=== PATIENT | male | born 1950 | race Caucasian/White ===

== ENCOUNTER 2023-10-05 22:04 | Inpatient (IN) | payer MEDICARE ==
--- NOTE | 2023-10-05 22:25 | ED Physician Documentation ---
History of Present Illness - Stated complaint Stated Complaint: FEVER/ - History obtained from History obtained from: Patient - Additonal information Additional information: 73-year-old man presents 2 days status post cystoscopy with dysuria and increased frequency as well as fever, also with URI symptoms. Denies chest pain but does have some subjective dyspnea. Denies nausea vomiting or diarrhea. PD PAST MEDICAL HISTORY - Allergies Allergies/Adverse Reactions: Allergies Allergy/AdvReac Type Severity Reaction Status Date / Time lisinopril Allergy Rash Verified 10/05/23 22:09 rosuvastatin [From Crestor] Allergy Rash Verified 10/05/23 22:09 PD ED PE NORMAL - Vitals Vital signs reviewed: Yes - General General: Alert and oriented X 3, No acute distress, Well developed/nourished - HEENT HEENT: Atraumatic, PERRL, EOMI - Neck Neck: Supple, no meningeal sign - Cardiac Cardiac: RRR - Respiratory Respiratory: No respiratory distress, Clear bilaterally, Other (Tachypneic) - Abdomen Abdomen: Non tender, Non distended - Back Back: No CVA TTP - Derm Derm: Normal color, Warm and dry - Extremities Extremities: No deformity - Neuro Neuro: No motor deficit, No sensory deficit Results - Vitals Vitals: Vital Signs - 24 hr 10/05/23 10/05/23 10/05/23 22:09 22:56 23:26 Temperature 38.7 C H 38.9 C H Heart Rate 114 H 104 H 103 H Respiratory 22 18 22 Rate Blood Pressure 143/84 H 172/85 H 160/82 H O2 Saturation 97 99 96 10/05/23 10/05/23 23:55 23:57 Temperature 38.4 C H 38.4 C H Heart Rate 101 H Respiratory 22 Rate Blood Pressure 164/72 H O2 Saturation 96 Oxygen O2 Source Room air - EKG (time done) 2245 EKG releavant findings:: EKG personally interpreted by author of this note. Relevant findings are: Rate: Rate (enter#) (103) Rhythm: Sinus tachycardia Emerson: Normal Intervals: Normal LA QRS: Normal Ischemia: Normal ST segments - Labs Labs: Laboratory Tests 10/05/23 10/05/23 10/05/23 22:20 22:20 22:31 WBC 16.9 H RBC 4.96 Hgb 15.0 Hct 45.4 MCV 91.5 MCH 30.2 MCHC 33.0 RDW 12.6 Plt Count 207 MPV 10.0 Neut # (Auto) Not Reportable Lymph # (Auto) Not Reportable [place] # (Auto) Not Reportable Eos # (Auto) Not Reportable Baso # (Auto) Not Reportable Absolute Nucleated RBC Not Reportable Total Counted 100 Band Neuts % (Manual) 0 Abnorm Lymph % (Manual) 0 Nucleated RBC % Not Reportable Neutrophils # (Manual) 13.9 H Lymphocytes # (Manual) 0.8 L Monocytes # (Manual) 2.2 H Eosinophils # (Manual) 0.0 Basophils # (Manual) 0.0 Differential Comment MANUAL DIFFERENTIAL Platelet Estimate NORMAL (130-450,000) Platelet Morphology NORMAL APPEARANCE RBC Morph Micro Appear NORMAL APPEARANCE Sodium Potassium Chloride Carbon Dioxide Anion Gap BUN Creatinine Estimated GFR (MDRD) Glucose Lactic Acid Calcium Total Bilirubin AST ALT Alkaline Phosphatase Total Protein Albumin Globulin Albumin/Globulin Ratio Urine Color YELLOW Urine Clarity CLOUDY Urine pH 7.0 Ur Specific [place] 1.020 Urine Protein 30 H Urine Glucose (UA) NEGATIVE Urine Ketones >=80 H Urine Occult Blood MODERATE H Urine Nitrite POSITIVE H Urine Bilirubin NEGATIVE Urine Urobilinogen 0.2 (NORMAL) Ur Leukocyte Esterase SMALL H Urine RBC TNTC H Urine WBC >25 H Ur Squamous Epith Cells NONE SEEN Urine Bacteria Many H Urine Culture Comments INDICATED Nasal Adenovirus (PCR) NOT DETECTED Nasal B. parapertussis DNA (PCR) NOT DETECTED Nasal Coronavir 229E PCR NOT DETECTED Nasal Coronavir HKU1 PCR NOT DETECTED Nasal Coronavir NL63 PCR NOT DETECTED Nasal Coronavir OC43 PCR NOT DETECTED Nasal Enterovir/Rhinovir PCR DETECTED A Nasal Influenza B PCR NOT DETECTED Nasal Influenza A PCR NOT DETECTED Nasal Parainfluen 1 PCR NOT DETECTED Nasal Parainfluen 2 PCR NOT DETECTED Nasal Parainfluen 3 PCR NOT DETECTED Nasal Parainfluen 4 PCR NOT DETECTED Nasal RSV (PCR) NOT DETECTED Nasal B.pertussis DNA PCR NOT DETECTED Nasal C.pneumoniae (PCR) NOT DETECTED Cornelio Human Metapneumo PCR NOT DETECTED Nasal M.pneumoniae (PCR) NOT DETECTED Nasal SARS-CoV-2 (PCR) NOT DETECTED 10/05/23 10/05/23 22:31 22:31 WBC RBC Hgb Hct MCV MCH MCHC RDW Plt Count MPV Neut # (Auto) Lymph # (Auto) [place] # (Auto) Eos # (Auto) Baso # (Auto) Absolute Nucleated RBC Total Counted Band Neuts % (Manual) Abnorm Lymph % (Manual) Nucleated RBC % Neutrophils # (Manual) Lymphocytes # (Manual) Monocytes # (Manual) Eosinophils # (Manual) Basophils # (Manual) Differential Comment Platelet Estimate Platelet Morphology RBC Morph Micro Appear Sodium 128 L Potassium 4.1 Chloride 98 L Carbon Dioxide 23 Anion Gap 7.0 BUN 16 Creatinine 0.9 Estimated GFR (MDRD) 83 L Glucose 202 H Lactic Acid 1.0 Calcium 9.2 Total Bilirubin 1.5 H AST 22 ALT 22 Alkaline Phosphatase 81 Total Protein 6.4 Albumin 4.0 Globulin 2.4 Albumin/Globulin Ratio 1.7 Urine Color Urine Clarity Urine pH Ur Specific [place] Urine Protein Urine Glucose (UA) Urine Ketones Urine Occult Blood Urine Nitrite Urine Bilirubin Urine Urobilinogen Ur Leukocyte Esterase Urine RBC Urine WBC Ur Squamous Epith Cells Urine Bacteria Urine Culture Comments Nasal Adenovirus (PCR) Nasal B. parapertussis DNA (PCR) Nasal Coronavir 229E PCR Nasal Coronavir HKU1 PCR Nasal Coronavir NL63 PCR Nasal Coronavir OC43 PCR Nasal Enterovir/Rhinovir PCR Nasal Influenza B PCR Nasal Influenza A PCR Nasal Parainfluen 1 PCR Nasal Parainfluen 2 PCR Nasal Parainfluen 3 PCR Nasal Parainfluen 4 PCR Nasal RSV (PCR) Nasal B.pertussis DNA PCR Nasal C.pneumoniae (PCR) Cornelio Human Metapneumo PCR Nasal M.pneumoniae (PCR) Nasal SARS-CoV-2 (PCR) PD Medical Decision Making - ED course ED course: 73-year-old man presents with urinary tract infection and sepsis secondary to this and enterovirus/rhinovirus viral URI. Patient also has hyponatremia with sodium 128. His white blood cell count is 16.9. IV Rocephin provided as well as IV fluids. Plan to admit to observation. Discussed with Dr. Vaughn, [facility]. Departure - Departure Disposition: ED Place in Observation Clinical Impression: UTI (urinary tract infection), Sepsis, Hyponatremia, Weakness Condition: Fair Forms: PCP List
[2023-10-05 22:37] LABS: BASOPHILS % (AUTO) 0.3 %; HCT - HEMATOCRIT 45.4 % (42.0-52.0); LYMPHOCYTES % (AUTO) 6.3 %; MEAN CORPUSCULAR HEMOGLOBIN 30.2 pg (27.0-31.0); MEAN CORPUSCULAR VOLUME 91.5 fL (80.0-94.0); MONOCYTES % (AUTO) 10.4 %; NEUTROPHILS % (AUTO) 82.5 %; PLT - PLATELET COUNT 207 10^3/uL (130-450); RED BLOOD COUNT 4.96 10^6/uL (4.70-6.10); RED CELL DISTRIBUTION WIDTH 12.6 % (12.0-15.0); WHITE BLOOD COUNT 16.9 x10^3/uL (4.8-10.8)
[2023-10-05 22:39] LABS: BILIRUBIN,URINE NEGATIVE (NEGATIVE); GLUCOSE, URINE (UA) NEGATIVE (NEGATIVE); KETONES,URINE (UA) >=80 mg/dL (NEGATIVE); LEUKOCYTE ESTERASE, URINE SMALL (NEGATIVE); NITRITE,URINE POSITIVE (NEGATIVE); OCCULT BLOOD,URINE MODERATE (NEGATIVE); PROTEIN,URINE 30 mg/dL (NEGATIVE); UROBILINOGEN,URINE 0.2 (NORMAL) E.U./dL (NORMAL)
[2023-10-05 22:40] LABS: CLARITY,URINE CLOUDY (CLEAR)
[2023-10-05 22:41] LABS: ABNORMAL LYMPHS % (MANUAL) 0 %; BAND NEUTROPHILS % (MANUAL) 0 %
[2023-10-05 22:49] LABS: BACTERIA,URINE Many /HPF (None Seen); RBC,URINE TNTC /HPF (0-5); SQUAMOUS EPITHELIAL CELL,UR NONE SEEN (<= Few); WBC,URINE >25 /HPF (0-3)
[2023-10-05 22:53] LABS: ALBUMIN/GLOBULIN RATIO 1.7 (1.0-2.2); BILIRUBIN,TOTAL 1.5 mg/dL (0.2-1.0); CALCIUM 9.2 mg/dL (8.5-10.3); CREATININE 0.9 mg/dL (0.6-1.3); POTASSIUM 4.1 mmol/L (3.5-4.5); TOTAL PROTEIN 6.4 g/dL (6.4-8.9)
[2023-10-05 23:00] LABS: LYMPHOCYTES # (MANUAL) 0.8 10^3/uL (1.5-3.5); LYMPHOCYTES % (MANUAL) 5 %; MONOCYTES # (MANUAL) 2.2 10^3/uL (0.0-1.0); NEUTROPHILS # (MANUAL) 13.9 10^3/uL (1.5-6.6); PLATELET ESTIMATE, MANUAL NORMAL (130-450,000) (NORMAL); PLATELET MORPHOLOGY NORMAL APPEARANCE (NORMAL); RBC MORPHOLOGY (MULTIPLE) NORMAL APPEARANCE (NORMAL)
[2023-10-05 23:01] LABS: DIFFERENTIAL COMMENT MANUAL DIFFERENTIAL
[2023-10-05] MEDS: ACETAMINOPHEN 325 MG TABLET PO STA (23:25)
[2023-10-05 23:32] LABS: CORONAVIRUS 229E-RESP PCR NOT DETECTED; CORONAVIRUS HKU1-RESP PCR NOT DETECTED; CORONAVIRUS NL63-RESP PCR NOT DETECTED; CORONAVIRUS OC43-RESP PCR NOT DETECTED
[2023-10-05 23:33] LABS: B. PARAPERTUSSIS- RESP PCR PAN NOT DETECTED; B. PERTUSSIS- RESP PCR PANEL NOT DETECTED; C. PNEUMONIAE- RESP PCR PANEL NOT DETECTED; HUMAN METAPNEUMOVIRUS NOT DETECTED; INFLUENZA A- RESP PCR PANEL NOT DETECTED; INFLUENZA B - RESP PCR PANEL NOT DETECTED; M. PNEUMONIAE- RESP PCR PANEL NOT DETECTED; PARAINFLUENZA VIRUS 1 NOT DETECTED; PARAINFLUENZA VIRUS 2 NOT DETECTED; PARAINFLUENZA VIRUS 3 NOT DETECTED; PARAINFLUENZA VIRUS 4 NOT DETECTED; RHINOVIRUS/ENTEROVIRUS DETECTED; RSV- RESP PCR PANEL NOT DETECTED; SARS-CoV-2 -RESP PCR PANEL NOT DETECTED
[2023-10-05] MEDS: SODIUM CHLORIDE 0.9% 1,000 ML IV STA (23:38)
[2023-10-06] MEDS ORDERED: SODIUM CHLORIDE FLUSH 0.9% 10 ML SYRINGE IVP PRN (00:07)
[2023-10-06] MEDS ORDERED: ONDANSETRON 4 MG/2 ML VIAL IVP PRN (00:07)
[2023-10-06] MEDS: cefTRIAXone 2 GM VIAL IVP STA (00:08)
--- NOTE | 2023-10-06 00:16 | HISTORY & PHYSICAL EXAMINATION ---
Chief Complaint - Chief Complaint Chief Complaint: Dysuria History of Present Illness - History of Present Illness HPI Comment/Other: 73 y old male With PMH DM type 1, BPH s/p s/p cystoscopy 2 days ago presented to ER due to burning and increased frequency of urination. Pt also had fever today. Denies PAVON, chest pain, SOB, Nausea, vomiting, diarrhea, constipation On presentation, pt was tachycardic Labs showed WBC 16.3, Na 128, Lactic acid 1.0 UA positive for UTI Nasal saw positive for Rhinovirus In ER, pt received IV rocephin and NS Pt is admitted due to severe sepsis, UTI, hyponatremia, URI History - Past Medical History Cardiovascular: reports: Hypertension Endocrine/Autoimmune: reports: Type 1 diabetes Meds/Allgy - Allergies Allergies/Adverse Reactions: Allergies Allergy/AdvReac Type Severity Reaction Status Date / Time lisinopril Allergy Rash Verified 10/05/23 22:09 rosuvastatin [From Crestor] Allergy Rash Verified 10/05/23 22:09 Review of Systems - Other Findings Other Findings: 10 points systems were reviewed and were negative except mentioned in HPI Exam - Vital Signs Vital Signs: Vital Signs x48h Temp Pulse Resp BP Pulse Ox 10/05/23 23:57 38.4 C H 101 H 22 164/72 H 96 10/05/23 23:55 38.4 C H 10/05/23 23:26 38.9 C H 103 H 22 160/82 H 96 10/05/23 22:56 104 H 18 172/85 H 99 10/05/23 22:09 38.7 C H 114 H 22 143/84 H 97 - Physical Exam General Appearance: positive: No acute distress Eyes Bilateral: positive: Normal inspection ENT: positive: ENT inspection nml Neck: positive: Nml inspection Respiratory: positive: Chest non-tender Cardiovascular: positive: Regular rate & rhythm Abdomen: positive: Non-tender, Nml bowel sounds Skin: positive: No rash Extremities: positive: Non-tender, No pedal edema Neurologic/Psychiatric: positive: Oriented x3, Mood/affect nml Conclusion/Plan - Lab Results Fish Bones: 10/05/23 22:31 10/05/23 22:31 - Other Other Results/Comments: A: Severe sepsis UTI Hyponatremia URI, rhinovirus infection DM type 1 with hyperglycemia BPH Plan: Admit in tele Folllow cultures Start NS @ 100 cc/h Start Rocephin1 gram iv daily Repeat CBC, CMP in am Monitor serum sodium q6h Neuro checks Cont lantus and insulin sliding scale DVT prophylaxic: SCD Full code Pt is admitted as inpatient as more than 2 midnight stay is expected
[2023-10-06] MEDS: SODIUM CHLORIDE 0.9% 1,500 ML IV STA (00:38)
[2023-10-06] MEDS: SODIUM CHLORIDE FLUSH 0.9% 10 ML SYRINGE IVP SCH (01:34)
[2023-10-06] MEDS: SODIUM CHLORIDE 0.9% 1,000 ML IV SCH (02:06)
[2023-10-06 06:40] LABS: BASOPHILS % (AUTO) 0.2 %; EOSINOPHILS % (AUTO) 0.1 %; HCT - HEMATOCRIT 40.5 % (42.0-52.0); HGB - HEMOGLOBIN 13.4 g/dL (14.0-18.0); LYMPHOCYTES # (AUTO) 1.5 10^3/uL (1.5-3.5); LYMPHOCYTES % (AUTO) 9.3 %; MEAN CORPUSCULAR HEMOGLOBIN 30.7 pg (27.0-31.0); MEAN CORPUSCULAR HGB CONC 33.1 g/dL (32.0-36.0); MEAN CORPUSCULAR VOLUME 92.9 fL (80.0-94.0); MEAN PLATELET VOLUME 10.1 fL (7.4-11.4); MONOCYTES # (AUTO) 2.1 10^3/uL (0.0-1.0); MONOCYTES % (AUTO) 13.4 %; NEUTROPHILS % (AUTO) 76.6 %; PLT - PLATELET COUNT 194 10^3/uL (130-450); RED BLOOD COUNT 4.36 10^6/uL (4.70-6.10); RED CELL DISTRIBUTION WIDTH 12.6 % (12.0-15.0); WHITE BLOOD COUNT 15.7 x10^3/uL (4.8-10.8)
[2023-10-06 07:06] LABS: ALBUMIN 3.2 g/dL (3.2-5.5); ALBUMIN/GLOBULIN RATIO 1.7 (1.0-2.2); CALCIUM 8.2 mg/dL (8.5-10.3); CREATININE 0.8 mg/dL (0.6-1.3); POTASSIUM 4.3 mmol/L (3.5-4.5); TOTAL PROTEIN 5.1 g/dL (6.4-8.9)
[2023-10-06 07:22] LABS: DIFFERENTIAL COMMENT MANUAL=AUTO DIFF; PLATELET ESTIMATE, MANUAL NORMAL (130-450,000) (NORMAL); PLATELET MORPHOLOGY NORMAL APPEARANCE (NORMAL)
[2023-10-06] MEDS: INSULIN LISPRO 300 UNIT/3 ML PEN SUBQ SCH ×4 (08:01→20:49)
[2023-10-06] MEDS: cefTRIAXone 1 GM in SODIUM CHLORIDE 0.9% MINIBAG 100 ML IV SCH (08:19)
[2023-10-06] MEDS: INSULIN GLARGINE-YFGN 300 UNIT/3 ML PEN SUBQ ONE (11:35)
[2023-10-06] MEDS ORDERED: INSULIN GLARGINE-YFGN 300 UNIT/3 ML PEN SUBQ SCH ×2 (12:00→21:00)
--- NOTE | 2023-10-06 14:19 | PHARMACY PROGRESS NOTE ---
- Best Possible Medication History Admit Date and Time: 10/06/23 000 Processed by: Pharmacy Medications reviewed in ED?: No Medication History completed: Yes Patient Interview: Completed (by pharmacy picking tech, Nico) Secondary Source(s): Insurance records As the person ultimately responsible for medication therapy, providers are able to order a medication from an existing home medication list in [facility] via the "Reconcile Routine" prior to Confirmation of that medication by application support analyst. Such practice is discouraged except when the physician, in their clinical judgment, deems that a medical need exists for a medication without regard to previous use.
[2023-10-06] MEDS: TAMSULOSIN 0.4 MG CAPSULE PO ONE (15:10)
[2023-10-06 20:17] VITALS: O2SAT 96
[2023-10-06] MEDS: INSULIN GLARGINE-YFGN 300 UNIT/3 ML PEN SUBQ SCH (20:45)
[2023-10-06] MEDS ORDERED: INSULIN LISPRO 300 UNIT/3 ML PEN SUBQ SCH (21:00)
[2023-10-07] MEDS: LEVOTHYROXINE 25 MCG TABLET PO SCH (06:54)
[2023-10-07] MEDS: LEVOTHYROXINE 112 MCG TABLET PO SCH (06:54)
--- NOTE | 2023-10-07 06:59 | PROVIDER PROGRESS NOTE ---
Assessment/Plan - Current Meds Current Meds: Current Medications Generic Name Dose Route Start Last Admin Trade Name Casa PRN Reason Stop Dose Admin Sodium Chloride 1,000 mls @ 100 mls/hr 10/06/23 01:00 10/06/23 23:32 Normal Saline 0.9% IV 100 mls/hr .Q10H CHANTE Administration Ceftriaxone Sodium 1 gm/ 100 mls @ 200 mls/hr 10/06/23 09:00 10/06/23 08:49 Sodium Chloride IV Infused DAILY CHANTE Infusion Insulin Glargine-yfgn 20 unit 10/06/23 21:00 10/06/23 20:45 Insulin Glargine-Yfgn 300 Unit/3 Ml Pen SUBQ 20 unit BID CHANTE Administration Insulin Human Lispro 6 unit 10/06/23 12:00 10/06/23 16:53 Insulin Lispro 300 Unit/3 Ml Pen SUBQ 4 unit TIDWM CHANTE Administration Insulin Human Lispro 3 - 11 unit 10/06/23 21:00 10/06/23 20:49 Insulin Lispro 300 Unit/3 Ml Pen SUBQ 4 unit 0800,1200,1700,2100 CHANTE Administration Protocol Levothyroxine Sodium 112 mcg 10/07/23 07:00 10/07/23 06:54 Levothyroxine 112 Mcg Tablet PO 112 mcg QDAC CHANTE Administration Levothyroxine Sodium 25 mcg 10/07/23 07:00 10/07/23 06:54 Levothyroxine 25 Mcg Tablet PO 25 mcg QDAC CHANTE Administration Sodium Chloride 10 ml 10/06/23 01:00 10/07/23 00:05 Sodium Chloride Flush 0.9% 10 Ml Syringe IVP Not Given 0100,0900,1700 CHANTE - Lab Result Fish Bone Diagrams: 10/06/23 06:30 10/06/23 06:30 Objective Vital Signs: Vital Signs - 24 hr 10/06/23 10/06/23 10/06/23 07:36 11:12 16:00 Temperature 36.7 C 36.5 C 36.6 C Heart Rate [ 76 75 68 Brachial] Respiratory 18 18 18 Rate Blood Pressure 136/72 H 131/65 H 123/72 [Left Brachial artery] Blood Pressure [Right Brachial artery] O2 Saturation 95 97 97 10/06/23 10/07/23 10/07/23 20:12 00:09 05:07 Temperature 36.6 C 36.6 C 36.4 C L Heart Rate [ 69 70 67 Brachial] Respiratory 18 16 16 Rate Blood Pressure 135/76 H [Left Brachial artery] Blood Pressure 115/75 142/79 H [Right Brachial artery] O2 Saturation 96 96 96 Oxygen O2 Source Room air I&O (Last 24 Hrs): Intake and Output Totals x24h 10/05/23 10/06/23 10/07/23 23:59 23:59 23:59 Intake Total 6050 Output Total 5610 1150 Balance 440 -1150 - Results Results: Laboratory Results WBC 15.7 x10^3/uL (4.8-10.8) H 10/06/23 06:30 RBC 4.36 10^6/uL (4.70-6.10) L 10/06/23 06:30 Hgb 13.4 g/dL (14.0-18.0) L 10/06/23 06:30 Hct 40.5 % (42.0-52.0) L 10/06/23 06:30 MCV 92.9 fL (80.0-94.0) 10/06/23 06:30 MCH 30.7 pg (27.0-31.0) 10/06/23 06:30 MCHC 33.1 g/dL (32.0-36.0) 10/06/23 06:30 RDW 12.6 % (12.0-15.0) 10/06/23 06:30 Plt Count 194 10^3/uL (130-450) 10/06/23 06:30 MPV 10.1 fL (7.4-11.4) 10/06/23 06:30 Neut # (Auto) 12.0 10^3/uL (1.5-6.6) H 10/06/23 06:30 Lymph # (Auto) 1.5 10^3/uL (1.5-3.5) 10/06/23 06:30 [place] # (Auto) 2.1 10^3/uL (0.0-1.0) H 10/06/23 06:30 Eos # (Auto) 0.0 10^3/uL (0.0-0.7) 10/06/23 06:30 Baso # (Auto) 0.0 10^3/uL (0.0-0.1) 10/06/23 06:30 Absolute Nucleated RBC 0.00 x10^3/uL 10/06/23 06:30 Total Counted 100 10/05/23 22:31 Band Neuts % (Manual) Not Reportable 10/06/23 06:30 Abnorm Lymph % (Manual) Not Reportable 10/06/23 06:30 Nucleated RBC % 0.0 /100WBC 10/06/23 06:30 Neutrophils # (Manual) Not Reportable 10/06/23 06:30 Lymphocytes # (Manual) Not Reportable 10/06/23 06:30 Monocytes # (Manual) Not Reportable 10/06/23 06:30 Eosinophils # (Manual) Not Reportable 10/06/23 06:30 Basophils # (Manual) Not Reportable 10/06/23 06:30 Differential Comment MANUAL=AUTO DIFF 10/06/23 06:30 Platelet Estimate NORMAL (130-450,000) (NORMAL) 10/06/23 06:30 Platelet Morphology NORMAL APPEARANCE (NORMAL) 10/06/23 06:30 RBC Morph Micro Appear NORMAL APPEARANCE (NORMAL) 10/05/23 22:31 Sodium 134 mmol/L (135-145) L 10/06/23 06:30 Potassium 4.3 mmol/L (3.5-4.5) 10/06/23 06:30 Chloride 106 mmol/L (101-111) 10/06/23 06:30 Carbon Dioxide 23 mmol/L (21-32) 10/06/23 06:30 Anion Gap 5.0 (6-13) L 10/06/23 06:30 BUN 13 mg/dL (6-20) 10/06/23 06:30 Creatinine 0.8 mg/dL (0.6-1.3) 10/06/23 06:30 Estimated GFR (MDRD) 95 (>89) 10/06/23 06:30 Glucose 229 mg/dL (74-104) H 10/06/23 06:30 POC Whole Bld Glucose 211 mg/dL (70 - 100) H 10/06/23 20:06 Lactic Acid 1.0 mmol/L (0.5-2.2) 10/05/23 22:31 Calcium 8.2 mg/dL (8.5-10.3) L 10/06/23 06:30 Total Bilirubin 1.0 mg/dL (0.2-1.0) 10/06/23 06:30 AST 16 IU/L (10-42) 10/06/23 06:30 ALT 17 IU/L (10-60) 10/06/23 06:30 Alkaline Phosphatase 61 IU/L (42-121) 10/06/23 06:30 Total Protein 5.1 g/dL (6.4-8.9) L 10/06/23 06:30 Albumin 3.2 g/dL (3.2-5.5) 10/06/23 06:30 Globulin 1.9 g/dL (2.1-4.2) L 10/06/23 06:30 Albumin/Globulin Ratio 1.7 (1.0-2.2) 10/06/23 06:30 Urine Color YELLOW 10/05/23 22:20 Urine Clarity CLOUDY (CLEAR) 10/05/23 22:20 Urine pH 7.0 PH (5.0-7.5) 10/05/23 22:20 Ur Specific [place] 1.020 (1.002-1.030) 10/05/23 22:20 Urine Protein 30 mg/dL (NEGATIVE) H 10/05/23 22:20 Urine Glucose (UA) NEGATIVE mg/dL (NEGATIVE) 10/05/23 22:20 Urine Ketones >=80 mg/dL (NEGATIVE) H 10/05/23 22:20 Urine Occult Blood MODERATE (NEGATIVE) H 10/05/23 22:20 Urine Nitrite POSITIVE (NEGATIVE) H 10/05/23 22:20 Urine Bilirubin NEGATIVE (NEGATIVE) 10/05/23 22:20 Urine Urobilinogen 0.2 (NORMAL) E.U./dL (NORMAL) 10/05/23 22:20 Ur Leukocyte Esterase SMALL (NEGATIVE) H 10/05/23 22:20 Urine RBC TNTC /HPF (0-5) H 10/05/23 22:20 Urine WBC >25 /HPF (0-3) H 10/05/23 22:20 Ur Squamous Epith Cells NONE SEEN (<= Few) 10/05/23 22:20 Urine Bacteria Many /HPF (None Seen) H 10/05/23 22:20 Urine Culture Comments INDICATED 10/05/23 22:20 Nasal Adenovirus (PCR) NOT DETECTED 10/05/23 22:20 Nasal B. parapertussis DNA (PCR) NOT DETECTED 10/05/23 22:20 Nasal Coronavir 229E PCR NOT DETECTED 10/05/23 22:20 Nasal Coronavir HKU1 PCR NOT DETECTED 10/05/23 22:20 Nasal Coronavir NL63 PCR NOT DETECTED 10/05/23 22:20 Nasal Coronavir OC43 PCR NOT DETECTED 10/05/23 22:20 Nasal Enterovir/Rhinovir PCR DETECTED A 10/05/23 22:20 Nasal Influenza B PCR NOT DETECTED 10/05/23 22:20 Nasal Influenza A PCR NOT DETECTED 10/05/23 22:20 Nasal Parainfluen 1 PCR NOT DETECTED 10/05/23 22:20 Nasal Parainfluen 2 PCR NOT DETECTED 10/05/23 22:20 Nasal Parainfluen 3 PCR NOT DETECTED 10/05/23 22:20 Nasal Parainfluen 4 PCR NOT DETECTED 10/05/23 22:20 Nasal RSV (PCR) NOT DETECTED 10/05/23 22:20 Nasal B.pertussis DNA PCR NOT DETECTED 10/05/23 22:20 Nasal C.pneumoniae (PCR) NOT DETECTED 10/05/23 22:20 Cornelio Human Metapneumo PCR NOT DETECTED 10/05/23 22:20 Nasal M.pneumoniae (PCR) NOT DETECTED 10/05/23 22:20 Nasal SARS-CoV-2 (PCR) NOT DETECTED 10/05/23 22:20
[2023-10-07 07:41] VITALS: BP 134/73
--- NOTE | 2023-10-07 08:57 | DISCHARGE SUMMARY ---
Discharge Summary Admit Date: 10/06/23 Discharge Date: 10/07/23 Discharging Provider: Venkatesh Mayer MD Primary Care Provider: Dominik Gee MD Code Status: Attempt Resuscitation Condition at Discharge: Stable Discharge Disposition: 01 Home, Self Care Discharge Facility [facility]: [facility] - DIAGNOSES Admission Diagnoses: 1. Urinary tract infection 2. Hyponatremia 3. Rhinovirus infection 4. Diabetes mellitus type 1 5. Benign prostatic hypertrophy Discharge Diagnoses with Status of Each Condition: 1. Urinary tract infection 2. Hyponatremia 3. Rhinovirus infection 4. Diabetes mellitus type 1 5. Benign prostatic hypertrophy - HPI History of Present Illness: Mr. Venkatesh Perkins is a 73-year-old man who was admitted on October 06, 2023 with a chief complaint of dysuria. He underwent a cystoscopy 2 days ago before presenting to the emergency room with complaints of burning and increased frequency of urination. Urinalysis was consistent with a urinary tract infection. Treatment was initiated with ceftriaxone 1 g daily. Urine sodium was moderately low at 128. Patient could not urinate in the emergency room and a Bowman catheter was placed. Hyponatremia resolved on hospital day two. Urine culture was positive for Staphylococcus aureus. 2 sets of blood cultures were obtained and there is no growth after 1 day. Patient reports he is overall improved and near his baseline. Plan is for him to be discharged today and to follow-up with his urologist to be scheduled for a transurethral resection of the prostate gland. Patient to be discharged home today on trimethoprim sulfa 1 tablet twice daily for 5 days. Patient to be discharged with Bowman in place. - HOSPITAL COURSE Hospital Course: See History of Present Illness - ALLERGIES Allergies/Adverse Reactions: Allergies Allergy/AdvReac Type Severity Reaction Status Date / Time lisinopril Allergy Rash Verified 10/05/23 22:09 rosuvastatin [From Crestor] Allergy Rash Verified 10/05/23 22:09 - MEDICATIONS Home Medications: Ambulatory Orders Medication Instructions Recorded Confirmed Aspirin EC [Ecotrin] 81 mg PO DAILY 10/06/23 10/06/23 Dutasteride 0.5 mg PO DAILY 10/06/23 10/06/23 Efinaconazole [Jublia] 1 applic TOP DAILY 10/06/23 10/06/23 Ezetimibe [Zetia] 10 mg PO DAILY 10/06/23 10/06/23 Insulin Glargine [Lantus Solostar] 20 units SUBQ BID 10/06/23 10/06/23 Insulin Lispro-Aabc [Lyumjev 5 - 6 units SUBQ QDDINNER 10/06/23 10/06/23 Kwikpen U-100] Insulin Lispro-Aabc [Lyumjev 5 - 6 units SUBQ QDLUNCH 10/06/23 10/06/23 Kwikpen U-100] Insulin Lispro-Aabc [Lyumjev 7 units SUBQ QDBREAKFAST 10/06/23 10/06/23 Kwikpen U-100] Levothyroxine Sodium [Synthroid] 137 mcg PO QDAC 10/06/23 10/06/23 Mv-Min/Folic/K1/Lycopen/Lutein 1 tab PO DAILY 10/06/23 10/06/23 [Centrum Silver Men Tablet] Tamsulosin [Flomax] 0.8 mg PO DAILY 10/06/23 10/06/23 Sulfamethox/Trimeth 800/160 1 tablet PO BID 5 Days #10 tablet 10/07/23 [Bactrim Ds] - PHYSICAL EXAM AT DISCHARGE General Appearance: positive: No acute distress, Alert Eyes Bilateral: positive: Normal inspection, Conjunctivae nml Neck: positive: No JVD, Trachea midline Respiratory: positive: Other (Good air exchange in all lung [place] no wheezing no crackles. ) Cardiovascular: positive: Other (Positive S1-S2 no extra heart sounds.) Abdomen: positive: Other (Soft nontender nondistended positive bowel sounds) Skin: positive: No rash Extremities: positive: No pedal edema Neurologic/Psychiatric: positive: Oriented x3, Motor nml - LABS Result Diagrams: 10/06/23 06:30 10/06/23 06:30 - FOLLOW UP Follow Up: Please arrange for follow-up with your urologist, Dr. Greg Mendenhall ([phone]) Please follow-up with your primary care provider in 2-4 weeks. Dominik Gee MD. - TIME SPENT Time Spent in Discharge (Minutes): 28
--- NOTE | 2023-10-07 08:57 | Discharge Plan ---
Discharge Plan Problem Reviewed?: Yes Disposition: Home, Self Care Condition: Stable Diet: Diabetic Activity Restrictions: Activity as Tolerated Shower Restrictions: No Driving Restrictions: No Weight Bearing: Full Weight Instruction Topics: Leg Bag Care Dc, Bowman Catheter Remove Health Concerns: Mr. Venkatesh Perkins is a 73-year-old man who was admitted on October 06, 2023 with a chief complaint of dysuria. He underwent a cystoscopy 2 days ago before presenting to the emergency room with complaints of burning and increased frequency of urination. Urinalysis was consistent with a urinary tract infection. Treatment was initiated with ceftriaxone 1 g daily. Urine sodium was moderately low at 128. Patient could not urinate in the emergency room and a Bowman catheter was placed. Urine culture was positive for Staphylococcus aureus. 2 sets of blood cultures were obtained and there is no growth after 1 day. Patient reports he is overall improved and near his baseline. Plan is for him to be discharged today and to follow-up with his urologist to be scheduled for a transurethral resection of the prostate gland. Patient to be discharged home today on trimethoprim sulfa 1 tablet twice daily for 5 days. Patient to be discharged with Bowman in place. Plan of Treatment: 1. Take all medications as prescribed. 2. Please make arrangements to follow-up with your urologist as soon as possible. 3. Recommend follow-up with your primary care provider in 2-4 weeks. 4. Please go to the emergency room or an acute care facility if you develop fever greater than 101.5 F, persistent elevated heart rate greater than 100, or significant unrelenting symptoms of fatigue. Care Goals: Goal of care is to return to baseline functioning. Assessment: In summary, Venkatesh Perkins is a 73-year-old man admitted with a urinary tract infection. Urine culture is growing staph coccus aureus which is most likely related to his recent cystoscopy procedure. Plan is for Mr. Perkins to complete a total 7-day course of antibiotics. He has been prescribed trimethoprim sulfa, 1 tablet twice daily for 5 days. The initial history and physical reports that the patient had sepsis on admission. The patient did not meet criteria for sepsis. No Smoking: If you smoke, Please STOP! Call for help. Follow-up with: Dominik Gee MD [Primary Care Provider] -
[2023-10-07] MEDS: TAMSULOSIN 0.4 MG CAPSULE PO SCH (09:00)
[2023-10-07] MEDS: ASPIRIN EC 81 MG TABLET PO SCH (09:00)
[2023-10-07] MEDS: FINASTERIDE 5 MG TABLET PO SCH (09:00)
[2023-10-07] MEDS: EZETIMIBE 10 MG PO SCH (09:09)
== END 2023-10-07 12:01 | disposition home or self-care (01) | DRG 872 ==
LOC: ED 22:04 → MS2 10-06 00:07
PROVIDERS: ADMIT Internal Medicine; ATTEND Internal Medicine
DX: A41.9 Sepsis, unspecified organism (principal); A41.89 Other specified sepsis; N39.0 Urinary tract infection, site not specified; E87.1 Hypo-osmolality and hyponatremia; B97.10 Unspecified enterovirus as the cause of diseases classified elsewhere; R65.20 Severe sepsis without septic shock; N40.1 Benign prostatic hyperplasia with lower urinary tract symptoms; R53.1 Weakness; I25.2 Old myocardial infarction; Z20.818 Contact with and (suspected) exposure to other bacterial communicable diseases; Z20.822 Contact with and (suspected) exposure to COVID-19; Z20.828 Contact with and (suspected) exposure to other viral communicable diseases; R35.0 Frequency of micturition; R33.8 Other retention of urine; J06.9 Acute upper respiratory infection, unspecified; B97.89 Other viral agents as the cause of diseases classified elsewhere; I10 Essential (primary) hypertension; E10.65 Type 1 diabetes mellitus with hyperglycemia; Z79.899 Other long term (current) drug therapy
CPT/HCPCS: 36415; 51702; 80053; 81001; 83605; 85025; 87040; 87086; 87181; 87633; 93005; 99285; A9270; J1815